=== PATIENT | male | born 1985 | race Caucasian/White ===

== ENCOUNTER 2023-03-09 21:16 | Emergency (ER) | payer OTHER ==
[~2023-03-09] VITALS: Ht 172.7 cm; Wt 71.2 kg
[~2023-03-09 21:16] MED LIST: LIPITOR20 MG PO
[2023-03-09 23:12] LABS: HEMATOCRIT 47.7 % (39.0-48.0); HEMOGLOBIN 16.6 g/dL (13-16.00); MEAN CELL VOLUME 84.5 fL (80.0-100.00); MEAN CORPUSCULAR HEMOGLOBIN 29.4 pg (27.00-32.0); MEAN CORPUSCULAR HGB CONC 34.7 g/dl (32.0-36.0); PLATELET COUNT 254 K/uL (150-450); RED BLOOD COUNT 5.64 M/uL (4.00-6.00); RED CELL DISTRIBUTION WIDTH 13.7 % (11.5-14.5)
[2023-03-09 23:32] LABS: ALBUMIN 4.4 gm/dL (3.4-5.0); BILIRUBIN TOTAL 0.81 mg/dL (0.3-1.2); CALCIUM 9.7 mg/dL (8.5-10.1); CREATININE SERUM 1.21 mg/dL (0.70-1.30); GFR 67.48; GLOBULINA 4.1 G/DL (2.4-3.5); POTASSIUM 3.9 mEq/L (3.5-5.1); TOTAL PROTEIN 8.5 gm/dL (6.4-8.2)
[2023-03-09] MEDS ORDERED: PEPCID AC20 MG PO (23:44)
[2023-03-09] MEDS ORDERED: ONDANSETRON ODT8 MG PO (23:44)
== END 2023-03-10 00:35 | disposition home or self-care (01) ==
LOC: ER 21:16
PROVIDERS: General Practice
DX: B34.9 Viral infection, unspecified (principal); Z20.822 Contact with and (suspected) exposure to COVID-19

== ENCOUNTER 2024-04-17 21:23 | Emergency (ER) | payer OTHER ==
[~2024-04-17] VITALS: Ht 172.7 cm; Wt 71.2 kg
[~2024-04-17 21:23] MED LIST changes: +ONDANSETRON ODT8 MG PO; +PEPCID AC20 MG PO
[2024-04-17 21:48] VITALS: BP 122/84; O2SAT 94
[2024-04-17] MEDS ORDERED: ACETAMINOPHEN 325 MG TABLET PO ONE ×2 (22:15)
[2024-04-17] MEDS ORDERED: BENZONATATE 200 MG CAPSULE PO ONE (22:15)
[2024-04-17 23:24] LABS: HEMATOCRIT 46.3 % (39.0-48.0); HEMOGLOBIN 16.1 g/dL (13-16.00); MEAN CELL VOLUME 84.6 fL (80.0-100.00); MEAN CORPUSCULAR HEMOGLOBIN 29.4 pg (27.00-32.0); MEAN CORPUSCULAR HGB CONC 34.8 g/dl (32.0-36.0); PLATELET COUNT 226 K/uL (150-450); RED BLOOD COUNT 5.48 M/uL (4.00-6.00); RED CELL DISTRIBUTION WIDTH 12.9 % (11.5-14.5)
[2024-04-17] MEDS ORDERED: BENZONATATE200 M1 PO (23:51)
[2024-04-17] MEDS ORDERED: PEPCID AC20 MG PO (23:51)
[2024-04-17] MEDS ORDERED: MONTELUKAST SODI4 M1 PO (23:51)
[2024-04-17] MEDS ORDERED: ZITHROMAX500 MG PO (23:51)
== END 2024-04-17 23:59 | disposition home or self-care (01) ==
LOC: ER 21:25
PROVIDERS: General Practice
DX: J00 Acute nasopharyngitis [common cold] (principal); E78.00 Pure hypercholesterolemia, unspecified; Z20.822 Contact with and (suspected) exposure to COVID-19